=== PATIENT | male | born 1990 | race African-American/Black ===

== ENCOUNTER 2019-06-11 21:52 | Emergency (ER) | payer OTHER ==
[~2019-06-11] VITALS: Ht 170.2 cm; Wt 115.2 kg
[2019-06-11 22:04] VITALS: TEMP 98.1
[2019-06-11 22:51] VITALS: BP 137/94
== END 2019-06-11 22:52 | disposition home or self-care (01) ==
LOC: ED 21:52
DX: E11.9 Type 2 diabetes mellitus without complications (principal); B37.49 Other urogenital candidiasis
CPT/HCPCS: 99281